=== PATIENT | female | born 2000 | race Two or more races ===

== ENCOUNTER 2019-08-21 20:08 | Emergency (ER) | payer BC, MEDICAID ==
[~2019-08-21] VITALS: Ht 162.6 cm; Wt 46.8 kg
--- NOTE | 2019-08-21 20:47 | NUR ---
Patient presents to ER with mother c/o VB since today. Patient states she is currently menstruating which started today but she is also having clots and "other things" come out of her vagina along with vaginal discharge. Patient states are circular and are not consistent with clots. Patient in NAD. Respirations even and unlabored.
--- NOTE | 2019-08-21 20:50 | NUR ---
Patient states she has been wearing the same pad all day and has not soaked it.
[2019-08-21 22:22] LABS: HCG UR SG 1.028 (1.003-1.030)
[2019-08-21 22:31] VITALS: BP 109/72
--- NOTE | 2019-08-21 22:32 | NUR ---
Patient resting in [place] with no complaints and mother in room.
--- NOTE | 2019-08-21 22:53 | NUR ---
Patient discharge instructions given. All questions and concerns addressed. Patient ambulatory with a steady gait. Belongings with patient.
== END 2019-08-21 22:58 | disposition home or self-care (01) ==
LOC: ED 22:20
DX: N93.9 Abnormal uterine and vaginal bleeding, unspecified (principal); F17.200 Nicotine dependence, unspecified, uncomplicated
CPT/HCPCS: 81025; 99283